=== PATIENT | female | born 1950 | race Caucasian/White ===

== ENCOUNTER 2025-03-08 11:19 | Outpatient (AMB) | payer OTHER, SELFPAY ==
--- NOTE | 2025-03-08 11:25 | A.OFFVIS_ITS ---
Intake Visit Reasons: 2 Months Allergies erythromycin base Allergy (Unknown, Verified 03/02/25 13:33) Unknown levofloxacin (From Levaquin) Allergy (Unknown, Verified 03/02/25 13:33) Unknown methocarbamol (From Robaxin) Allergy (Unknown, Verified 03/02/25 13:33) Unknown morphine Allergy (Unknown, Verified 03/02/25 13:33) Unknown neomycin Allergy (Unknown, Verified 03/02/25 13:33) Unknown oxycodone Allergy (Unknown, Verified 03/02/25 13:33) Unknown pseudoephedrine Allergy (Unknown, Verified 03/02/25 13:33) Unknown HPI Comments Details: 74 yo RH woman with element of anxiety disorder and mild paranoia with significant cortical cerebral atrophy. She c/o chronic dizziness. I saw her in 2019 with similar symptoms. It was a feeling of lightheadedness but not fainting type. There was no known trigger. It was happening sporadically and each time could last for hours. During that time, she was able to function without any issues. Sometimes she had a right ear pressure. No head pressure or headache. There was no mental confusion, difficulty speaking, problem with eyes or walking. No LOC. Sometimes she had tingling and sometimes palpitations. Lorazepam, if taken, can take care of it. She had an MRI of brain and then an MRA of brain, which revealed mild cortical atrophy and bilateral M2 stenosis. EEG was ok. She was feeling better with Escitaloprim. No new issues. [facility] Medical History (Updated 03/08/25 @ 11:36 by Adam Ch MD) Psychosomatic disease Intracranial atherosclerosis Cerebral microvascular disease Anxiety Frontotemporal lobar degeneration Migraine equivalent syndrome Review of Systems Const Details: Constitutional:?No fever, chills, fatigue, weight loss, or night sweats. HEENT:?No headache, vision changes, hearing loss, nasal congestion, sore throat. Neurological:?No dizziness, syncope, seizures, numbness, tingling, weakness, tremors, memory loss. Psychiatric:?No anxiety, depression, mood swings, sleep disturbance, or hallucinations. Endocrine:?No heat/cold intolerance, polydipsia, polyuria, or hair/skin changes. Hematologic/Lymphatic:?No easy bruising, bleeding, or lymphadenopathy. Integumentary (Skin):?No rash, lesions, itching, or color changes. ? Assessment & Plan Assessment & Plan (1) Cerebral degeneration: Comment: MRI/MRA brain WO at [facility] in November 2024: Mild cortical atrophy, minimal MVD, b/l M2 stenosis EEG at office in December 2019: WNL MRI brain WO at [facility] in November 2019: minor MVD, atrophy CT brain WO at [facility] in November 2019: mild to mod FT atrophy CTA neck at [facility] in November 2019: distal [employer] stenosis, otherwise ok (reported) MRI brain WO at [place] in 2012: Mild cerebral atrophy Code(s): G31.9 - Degenerative disease of nervous system, unspecified Category: Medical (2) Intracranial atherosclerosis: Code(s): I67.2 - Cerebral atherosclerosis Category: Medical (3) Anxiety disorder: Code(s): F41.9 - Anxiety disorder, unspecified Category: Medical Qualifiers: Anxiety disorder type: unspecified anxiety disorder Qualified Code(s): F41.9 - Anxiety disorder, unspecified Plan Impression: a: 75 yo woman with degenerative brain process resulting in diffuse cerebral atrophy. It was mild in 2012 and has progressed since then. It typically can result in cognitive and behavioral symptoms including anxiety. b: Intracranial atherosclerosis with mild small vessel disease on MRI Rec: a: Escitaloprm 5mg a day for symptomatic relief b: Aspirin 81 mg daily c: Abeta amyloid serum test d: B12/folate level Orders: Orders ABeta 42/40 p-tau 217 Eval Today G31.84 - Mild cognitive impairment of uncertain or unknown etiology Vitamin B12 and Folate Today G31.9 - Degenerative disease of nervous system, unspecified Medications: Refilled escitalopram oxalate 5 mg PO DAILY 90 tabs 1RF 90 days Coding Level of Care Code Est Pt Level 5 (99206) Diagnoses Cerebral degeneration G31.9 Intracranial atherosclerosis I67.2 Anxiety disorder, unspecified type F41.9 Anxiety disorder type: unspecified anxiety disorder
--- OUTSIDE RECORDS SUMMARY | 2025-03-08 11:59 | XMS_ITS | Clinical Summary ---
Author Organization [facility] Address [address] [place] [id number] Phone Care Team Providers Care Facility Planner Name Role Phone Lindsey Esteban MD Primary Care Provider [phone] Allergies Active Allergy Reactions Criticality Noted Date Comments Cefuroxime Axetil 07/05/2023 Gluten Protein GI Upset 07/08/2024 Latex Rash Low 07/05/2023 Levofloxacin Hives 07/05/2023 Pseudoephedrine 07/05/2023 Shellfish Containing Products Hives,Rash Low 2022 Sulfa (Sulfonamide Antibiotics) 02/2023 Medications fluticasone propionate (FLONASE) 50 mcg/actuation nasal spray 2 sprays by Nasal route daily. Active VAGIFEM [address] 10 mcg vaginally 2 (two) times a week. Active desonide (DESOWEN) 0.05 % ointment Apply topically as needed. Active fluorouraciL (EFUDEX) 5 % cream APPLY TWICE DAILY TO AFFECTED SCALY AREAS FOR SEVERAL WEEKS UNTIL RED AND CRUSTED. 4 Active Active Problems Problem Noted Date Diagnosed Date Celiac disease 07/05/2023 Osteoporosis 07/05/2023 Fibromyalgia 07/05/2023 Hyperlipidemia 07/05/2023 Psoriasis 07/05/2023 GERD (gastroesophageal reflux disease) 3 Essential hypertension 07/05/2023 Pre-diabetes 07/05/2023 Assessment & Plan (07/08/2024 1:09 PM EST): Hba1c last year was was 5.5 w/ glucose 113, which if fasting is c/w pre- diabetes. Sounds as if fairly longstanding & stable. Discussed role of age, genetics, diet, exercise. Would continue to monitor. Given slip to include HbA1c with upcoming labs. Assessment & Plan (07/05/2023 11:53 AM EST): Hba1c earlier in the year was 5.5 w/ glucose 113, which if fasting is c/w pre-diabetes. Sounds as if fairly longstanding & stable. Would continue to monitor. Allergies Multinodular goiter Overview (07/05/2023): Longstanding, s/p FNA w/ Dr. Starkey on left 2005 & bilaterally by Dr. Mendoza 2016. Stable ultrasound 2020. Euthyroid Assessment & Plan (07/08/2024 1:08 PM EST): Longstanding, s/p FNA w/ Dr. Starkey on left 2005 & bilaterally by Dr. Mendoza 2016. Stable ultrasound 2020. Exam unchanged. Has been euthyroid. Some issues swallowing, unlikely related to thyroid, does see GI. Will repeat ultrasound prior to follow up. Will check TFTs with upcoming labs for PCP. Assessment & Plan (07/05/2023 11:52 AM EST): No compressive symptoms. Exam notable for 1 small nodule right lower pole. Will call for actual reports/images of previous ultrasound & determine if/when needs follow up imaging. Will check TFTs with upcoming labs for PCP. Family History Medical History Relation Comments Diabetes Father Thyroid disease Sister Relation Status Comments Father Sister Social History Tobacco Use Types Packs/Day Years Used Date Smoking Tobacco: Never Smokeless Tobacco: Never Tobacco Cessation:Counseling Given: Not Answered Alcohol Use Standard Drinks/Week Comments Never 0 (1 standard drink = 0.6 oz pur e alcohol) Education Answer Date Recorded Are you interested in more education? Not on veronica e 11/23/2022 Are you concerned about learning? Not on file 11/23/2022 No 11/23/2022 No 11/23/2022 Digital Access Answer Date Recorded No 12/24/2022 No 12/24/2022 Reliable internet access at home? Not on file 12/24/2022 Device with a working camera? Not on file Comments Unknown Sex and Gender Information Value Date Recorded Sex Assigned at Female 06/28/2023 12:59 PM EST Legal Sex Female 10:05 PM EDT Gender Identity Female 06/28/2023 12:59 PM EST Sexual Orientation Lesbian or Wetzel 06/28/2023 12 :59 PM EST Last Filed Vital Signs Vital Sign Reading Time Taken Comments Blood Pressure 110/60 07/08/2024 10:48 AM EST Pulse 98 07/08/2024 10:48 AM EST Temperature - - Respiratory Rate - - Oxygen Saturation 99% 07/08/2024 10:48 AM EST Inhaled Oxygen Concentration - - Weight 57.2 kg (126 lb) 07/08/2024 10:48 AM EST Height 164 cm (5' 4.57 ) 07/08/2024 10:48 AM EST Body Mass Index 21.25 07/08/2024 10:48 AM EST Plan of Treatment Upcoming Encounters Date Type Department Care Team (Late st Contact Info) Description 07/08/2025 10:00 AM EST Office Visit [facility] [address] [place] [phone] Lizbet Lee MD [address] [place] [phone] [email or web address] Health Maintenance Due Date Last Done Comments Adult Td,Tdap Booster 1950 LIPID PANEL 1950 DEPRESSION SCREENING 1960 HEPATITIS C SCREENING 01/25/1966 PNEUMOCOCCAL VACCINES (50+ y ears) (1 of 1 - PCV) 01/25/1998 ZOSTER VACCINES (1 of 2) 01/25/1998 OSTEOPOROSIS SCREENING INITI AL (ONE-TIME) 01/25/2013 RSV VACCINE (1 - 1-dose 75+ series) 01/25/2023 COVID-19 VACCINE ( - 2023-2 5 season) 2024 BLOOD PRESSURE 01/06/2025 07/08/2024 SMOKING STATUS SCREENING (On ce After 26 Yrs) Completed 07/05/2023 HEPATITIS A VACCINES Aged Out No long er eligible based on patient's age to complete this topic HIB VACCINES Aged Out No longer eligi ble based on patient's age to complete this topic MENINGOCOCCAL VACCINES (ACWY) Aged Out No longer eligible based on patient's age to complete this topic MENINGOCOCCAL VACCINES (B) Aged Out N o longer eligible based on patient's age to complete this topic Medical Devices Not on file Insurance [employer] PLUS PPO [employer] PLUS PPO [employer] P[employer]US PPO [facility] PLUS PPO [employer] Member Subscriber Plan / Payer (Ef fective 2004-Present) Name:Wanda Cordero Relation to Subscriber:Self Name:Wanda Cordero Payer ID:[id number] (NAIC) Type:Indemnity Address: [address] [address] Care Teams Facility Planner Relationship Specialty Start Date End Date Lindsey Esteban MD [address] [place] [phone] [email or web address] PCP - General Internal Medicine 4/24/23 Additional Source Comments The information contained in this document represents components of the legal health record. It is not the complete legal health record.[facility]
--- OUTSIDE RECORDS SUMMARY | 2025-03-08 11:59 | XMS_ITS | Clinical Summary ---
Author Organization [facility] Address [address] [place] [address] Phone Care Team Providers Care Beer Merchant Name Role Phone Lindsey Esteban MD Primary Care Provider [phone] Allergies Active Allergy Reactions Criticality Noted Date Comments Cephalexin 07/21/2014 Erythromycin Itching,Swelling High 02/10/2016 Eye ointment Latex High 12/20/2005 Other Reaction(s): Rash/Dermatitis after dentist using latex gloves facial rash and cuts corner of mouth Levofloxacin 03/30/2010 Other Reaction(s): Hives/Urticaria Methocarbamol Swelling 07/11/2010 Morphine Nausea And Vomiting 03/30/2010 Wcytjtdb-Rqlfkwnxf-Fg Medium 02/10/2016 Other Reaction(s): OTHER Ears blocked & sore Oxycodone Nausea And Vomiting 03/30/2010 Pseudoephedrine Hcl 12/20/2005 fast heart rate, feels weird Shellfish Derived 05/01/2017 Other Reaction(s): Rash/Dermatitis Simple Eye Ointment 07/31/2024 Eye ointment Sulfa (Sulfonamide Antibiotics) 12/20/2005 since childhood Medications multivit-min/iron /folic acid/K (ADULTS MULTIVITAMIN ORAL) Take by mouth daily. Active estradioL (VAGIFEM) 10 mcg tablet vaginal tablet Place 1 Tablet vaginally twice a week. 3 Active clobetasoL (OLUX) 0.05 % topical foam 6 Active fluocinolone and shower cap 0.01 % oil 6 Active loratadine (CLARITIN) 10 mg tablet 1 Tablet as needed. 5 Active cholecalciferol (VITAMIN D-3) 25 mcg (1,000 unit) tablet 1,000 Units. 5 Active fluticasone propionate (FLONASE) 50 mcg/actuation nasal spray USE DAILY OR DIRECTED BY PHYSICIAN 8 Active desonide (DESOWEN) 0.05 % ointment Apply topically 2 times daily. For eczema Active ketoconazole (NIZORAL) 2 % shampoo Apply topically daily as needed. Active pimecrolimus (ELIDEL) 1 % cream Active albuterol HFA (PROAIR HFA ; PROVENTIL HFA ; VENTOLIN HFA) 90 mcg/actuation inhaler every 4 to 6 hours as needed 4 Active methocarbamoL (ROBAXIN) 500 mg tablet Take 1 tablet (500 mg total) by mouth 4 (four) times a day. Active LORazepam (ATIVAN) 0.5 mg tablet TAKE 1 TABLET BY ORAL ROUTE 2 TIMES PER DAY NEEDED Active Bacillus coagulans (Probiotic, B. coagulans,) 10 billion cell capsule,delayed release(DR/EC) 7 Active multivit-min/foli c acid/vit K1 (MULTI FOR HER 50 PLUS ORAL) Active cetirizine (ZyrTEC) 10 mg capsule 1 capsule by mouth 6 Active aspirin 81 mg EC tablet Take 1 tablet (81 mg total) by mouth 1 (one) time each day. Active famotidine (Pepcid) 20 mg tabletIndications :Gastroesophageal reflux disease, unspecified whether esophagitis present Take 1 tablet (20 mg total) by mouth 2 (two) times a day. 60 each 5 12/09/19 26 Active esomeprazole (NexIUM) [address] capsuleIndication s:Nausea,Epigastr ic pressure,Gastroes ophageal reflux disease without esophagitis TAKE 1 CAPSULE (20 MG TOTAL) BY MOUTH 1 (ONE) TIME EACH DAY BEFORE BREAKFAST. 90 capsule 1 5 11/15/20 25 Active Active Problems Problem Noted Date Diagnosed Date Allergies 11/27/2024 Multinodular goiter 11/27/2024 Overview (11/27/2024): Longstanding, s/p FNA w/ Dr. Starkey on left 2005 & bilaterally by Dr. Mendoza 2015. Stable ultrasound 2020. Euthyroid Lightheadedness 10/30/2024 Dizziness 10/30/2024 Chronic obstructive pulmonar y disease (CMS/HCC V24, CMS/HCC V28) 10/08/2024 Celiac disease 09/04/2024 Assessment & Plan (09/18/2024 6:20 PM EST): Possible exposure. Will check tissue transglutaminase levels. Orders: Tissue transglutaminase, IgG; Future Comprehensive metabolic panel; Future CBC and differential; Future Elevated blood pressure read ing without diagnosis of hypertension 05/18/2024 Overview (07/31/2024): Last Assessment & Plan: Likely whitecoat phenomenon. In reviewing her previous flowsheets with us, her blood pressures have been better controlled in the past. Recommended home blood pressure checks 2-3 times a week at different times in a resting state. She will update me with her numbers on MyChart in a month or so at which point we can determine if she needs medications or not. I suspect they will be normal though. Actinic keratosis 04/02/2024 Essential hypertension 07/05/2023 Pre-diabetes 07/05/2023 Osteoporosis 07/05/2023 Hyperlipidemia 07/05/2023 Fibromyalgia 07/05/2023 Celiac disease 07/05/2023 Dyspnea on exertion 05/23/2023 Overview (07/31/2024): - Exercise nuclear stress test in May 2023-she exercised for 7 minutes to 83% of max predicted heart rate with normal perfusion on nuclear imaging, normal LV systolic function and regional wall motion, normal TID ratio Last Assessment & Plan: Low suspicion for pure cardiac causes. Negative ischemic testing as above last year. Dyspnea has actually improved since last year. I suspect there is significant allergy component which she is working on and reports good control of symptoms. Continue regular exercise program throughout the year as discussed above. Assessment & Plan (09/04/2024 10:32 AM EST): Patient does have some dyspnea on exertion at baseline, very dependent on allergy season. I am going to update an echocardiogram. Orders: Transthoracic echocardiogram (TTE) complete with PRN contrast, bubble, strain, and 3D order panel; Future Cerebral microvascular disease 05/23/2023 Overview (07/31/2024): - Presented with presyncopal episodes to [facility] ER in November 2021-had a full neurologic work-up with an MRI of the brain and the CT angiography of the head and neck - MRI showed no acute abnormalities with mild parenchymal volume loss and probable microangiopathic ischemic changes - CT angiography showed no carotid occlusions, no other hemodynamically significant stenoses or dissection, she had a 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 Ch of neurology who was apparently concerned she may have some early dementia - She pursued a second neurologic opinion who did not feel this to be the case - In further work-up of cardiovascular risk, I did a coronary calcium score which was unremarkable - She also had an expanded lipid profile which showed normal LP (a) at 8, mildly increased IDL at 21 with upper limit of normal being 20, LDL-R-C of 132, pattern a size with remnant lipoprotein of 33 with upper limit of normal being 30, apolipoprotein B 100 of 117 with upper limit of normal being 109, total non-HDL cholesterol of 181 with upper limit of normal being less than 160, HDL-2 of 19 with greater than 15 being good, HDL-3 of 45 with greater than 25 being good, and VLDL of 12 with less than 10 being good Last Assessment & Plan: No new TIA/CVA symptoms Nonvenomous insect bite of left lower leg 2022 Palpitations 05/04/2022 Overview (07/31/2024): - Holter monitor in November 2019 showed sinus rhythm with rare APCs, 1 atrial pair, rare PVCs with symptoms of lightheadedness and dizziness correlating to sinus rhythm Last Assessment & Plan: Rare, intermittent symptoms, no worrisome findings, continue to monitor Assessment & Plan (09/04/2024 10:32 AM EST): Patient experiencing slight increase in palpitations, at night. They do not interfere with her daily living. I do want to update a Holter monitor. Orders: ECG 12 lead Cardiac holter monitor (<= 48 hours); Future Melanocytic nevi of left lower limb, including h ip 03/31/2020 Other seborrheic keratosis 03/31/2020 Arthritis 05/21/2019 Hypercholesterolemia 05/21/2019 GERD (gastroesophageal reflux disease) 9 Clinical finding present on admission 04/23/2019 Low back pain radiating to right leg 11/12/2018 Headache 10/27/2018 Overview (11/27/2024): Facial pain NOS; Note: Date Diagnosed: 10/27/2018 9:33 AM (R51) Follicular cyst of skin and subcutaneous tissue 10/09/2018 Cervical spine arthritis 07/07/2018 Hyperlipidemia 04/09/2018 Overview (07/31/2024): - Mild and for further restratification, we did a coronary calcium score on 02/12/2020 which was 0 and therefore we have managed without medical therapy so far Last Assessment & Plan: Continue to observe heart healthy diet. Reviewed the importance of regular aerobic exercise all throughout the year. Assessment & Plan (09/04/2024 10:32 AM EST): Will draw lipid panel in 3 months. Educated the patient about adhering to a healthy cardiac diet. Orders: ECG 12 lead Lipid panel; Future Nasal congestion 04/07/2018 Overview (11/27/2024): Nasal congestion; Note: Date Diagnosed: 04/07/2018 9:45 AM (R09.81) Lichen sclerosus 03/18/2018 Recurrent UTI 11/25/2017 Osteopenia 10/15/2017 Allergic rhinitis 07/12/2017 Plantar wart 11/06/2016 Allergic rhinitis 10/17/2016 Overview (11/27/2024): Allergic Rhinitis; Note: Date Diagnosed: 10/17/2016 10:34 AM (477.9) Other allergic rhinitis; Note: Date Diagnosed: 10/03/2016 8:57 AM (J30.89) ; Start Date : 10/03/2016 Psoriasis 06/27/2016 Overview (11/27/2024): Other psoriasis; Note: Date Diagnosed: 06/27/2016 2:52 PM (L40.8) Ear drum perforation 04/05/2016 Irritable bowel syndrome (IBS) 02/09/2016 Assessment & Plan (12/08/2024 10:38 AM EDT): Improved since the gallon cleanout . Continue fiber supplementation daily. Consider MiraLAX in regimen and preventative therapy to avoid overflow diarrhea occurring again, take MiraLAX every 2-5 days or as needed. -Can also use prunes or prune juice daily for preventative measure. Prunes: 6-8 daily, Prune juice: 6-8oz daily. Make sure to stay well hydrated, eat a diet rich in fibrous foods, and exercise/walk daily for promoting bowel movements. 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/2016 Acute serous otitis media of right ear 6 Overview (11/27/2024): Acute serous otitis media, right ear; Note: Date Diagnosed: 01/09/2016 9:44 AM (H65.01) Arthralgia of temporomandibular joint 01/09/2016 Overview (11/27/2024): Arthralgia of temporomandibular joint; Note: Date Diagnosed: 01/09/2016 9:45 AM (M26.62) Bilateral impacted cerumen 01/06/2016 Overview (11/27/2024): Impacted cerumen, bilateral; Note: Date Diagnosed: 01/06/2016 4:33 PM (H61.23) Mixed conductive and sensori neural hearing loss of right ear 01/06/2016 Overview (11/27/2024): Mixed conductive and sensorineural hearing loss, unilateral, right ear, with unrestricted hearing on the contralateral side; Note: Date Diagnosed: 01/06/2016 5:10 PM (H90.71) Sensorineural hearing loss (SNHL) of both ears 0 01/06/2016 Overview (11/27/2024): Sensorineural hearing loss, unilateral, left ear, with unrestricted hearing on the contralateral side; Note: Date Diagnosed: 01/06/2016 5:10 PM (H90.42) Central perforation of tympanic membrane of righ t ear 12/29/2015 Overview (11/27/2024): Central perforation of tympanic membrane, right ear; Note: Date Diagnosed: 12/29/2015 4:47 PM (H72.01) Psoriasis vulgaris 12/15/2015 Eczema 09/19/2015 Overview (11/27/2024): Other specified dermatitis; Note: Date Diagnosed: 09/19/2015 10:16 AM (L30.8) Melanocytic nevi of trunk 09/06/2015 Sick sinus syndrome (CMS/[facility] V24, CMS/HCC V28) 1 09/12/2014 Thyroid nodule 07/08/2015 Benign neoplasm of skin of upper extremity 07/07 Other specified disorders of eustachian tube, bi lateral 07/06/2015 Overview (11/27/2024): Other specified disorders of Eustachian tube, bilateral; Note: Date Diagnosed: 07/06/2015 4:13 PM (H69.83) Otalgia of both ears 06/28/2015 Overview (11/27/2024): Otalgia, bilateral; Note: Date Diagnosed: 06/28/2015 11:35 AM (H92.03) Otorrhea 04/06/2015 Overview (11/27/2024): Otorrhea; Note: Date Diagnosed: 04/06/2015 10:30 AM (388.60) Otorrhea of right ear 04/06/2015 Overview (11/27/2024): Otorrhea, right ear; Note: Date Diagnosed: 04/06/2015 10:27 AM (H92.11) resolved Anal fissure 04/05/2015 External hemorrhoids 03/09/2015 Verruca 03/09/2015 Eczema 02/17/2015 Senile hyperkeratosis 01/17/2015 Rosacea 10/20/2014 Benign neoplasm of skin of trunk 09/21/2014 Anal polyp 07/21/2014 Inflamed seborrheic keratosis 07/19/2014 Internal hemorrhoids 07/09/2014 Seborrheic dermatitis 05/19/2014 Arthralgia of multiple sites 03/08/2014 Neoplasm of uncertain behavior of skin 4 Abnormal pigmentation of skin 01/04/2014 Fibromyalgia 11/08/2011 GERD (gastroesophageal reflux disease) 2 Assessment & Plan (12/08/2024 10:38 AM EDT): Patient would like to switch off PPI to something with less long-term risks. Continue Nexium until prescription runs out, then switch to Famotidine 20mg daily with optional second dose at bedtime. Follow a low-acid diet and avoid overeating, especially before bedtime. Orders: famotidine (Pepcid) 20 mg tablet; Take 1 tablet (20 mg total) by mouth 2 (two) times a day. Dysphagia 02/28/2010 Encounters Date Type Department Care Team Description 02/11/2025 10:30 AM EDT Office Visit Pulmonolgy - [place] [address] [facility] [address] [place] [address] Jeannie Daigle MD Mycobacterium avium complex ([facility] V24, [facility] V28) (Primary Dx); Bronchiectasis without complication ([facility] V24, [facility] V28) 12/08/2024 10:10 AM EDT Office Visit Gastroenterology - [address] [facility] [address] [facility] [address] [place] [address] Marisol Adair PA Gastroesophageal reflux disease, unspecified whether esophagitis present (Primary Dx); Irritable bowel syndrome with both constipation and diarrhea from Last 3 Months Immunizations Name Administration Dates Next Due Pfizer SARS-CoV-2 COVID-19, mRNA, LNP-S, preservative free 10/01/2020 Pneumococcal polysaccharide 23 valent (Pneumovax 23) 2yo and older 07/13/2013 Tdap Tetanus diptheria acell ular pertussis (Boostrix; Adacel) 7yo and older 04/26/2015 Surgical History Surgery Date Site/Laterality Comments CHOLECYSTECTOMY 2000 PROCEDURE: HISTORICAL CHOLECYSTECTOMY UPPER GASTROINTESTINAL ENDOSCOPY 1999 PROCEDURE: [place] UPPER GI ENDOSCOPY PERFORMED; COMMENT: esophageal dilation in the past. COLONOSCOPY 2010 PROCEDURE: HISTORICAL COLONOSCOPY; COMMENT: Mark; negative COLONOSCOPY 2021 - 02/25/2021 dr. juares ESOPHAGOGASTRODUODENOSCOPY 2021 - 02/25/2021 celiac disease Medical History Medical History Date Comments Allergic rhinitis 07/12/2017 DX:Allergic rh initis Anal fissure 04/05/2015 DX:Anal fissure Anal polyp 07/21/2014 DX:Anal polyp Arthralgia of multiple sites 03/08/2014 DX: Arthralgia of multiple sites Dysphagia 02/28/2010 DX:Dysphagia Ear drum perforation 04/05/2016 DX:Ear drum perforation Eczema 02/17/2015 DX:Eczema External hemorrhoids 03/09/2015 DX:External hemorrhoids Fibromyalgia 11/08/2011 DX:Fibromyalgia GERD (gastroesophageal reflux disease) 2 DX:GERD (gastroesophageal reflux disease) Hyperlipidemia 04/09/2018 DX:Hyperlipidemi a Internal hemorrhoids 07/09/2014 DX:Internal hemorrhoids Irritable bowel syndrome (IBS) 02/09/2016 D X:Irritable bowel syndrome (IBS) Lichen sclerosus 03/18/2018 DX:Lichen scler osus Osteopenia 10/15/2017 DX:Osteopenia Recurrent UTI 11/25/2017 DX:Recurrent UTI Seborrheic dermatitis 07/06/2015 DX:Seborrh eic dermatitis Sick sinus syndrome (CMS/HCC V24, CMS/HCC V28) 07/12/2015 DX:Sick sinus syndrome (HCC) Thyroid nodule 07/08/2015 DX:Thyroid nodul e 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/2016 DX:TMJ arthritis Celiac disease DX:Celiac diseas e Motion sickness 1985 Anxiety Lung disease Family History Medical History Relation Name Comments Breast cancer Aunt mat side x2 Diabetes Father Huey Heart attack Father Huey Hypertension Father Huey Other cancer Father Huey lymphoma Breast cancer Father's Sister Breast cancer Father's side paternal aunt 41 Other cancer Father's side lung ca patern al uncle Heart failure Mother Sylvie Hypertension Mother Sylvie Breast cancer Mother's Sister Breast cancer Sister BRCA negative Relation Name Status Comments Aunt Father Huey Father's Sister Alive Father's side Mother Sylvie Mother's Sister Alive Sister Social History Tobacco Use Types Packs/Day Years Used Date Smoking Tobacco: Former Cigarettes 1 5 0 07/29/1969 - 07/29/1974 Smokeless Tobacco: Never Tobacco Cessation:Counseling Given: Not Answered Alcohol Use Standard Drinks/Week Comments No 0 (1 standard drink = 0.6 oz pur e alcohol) Comments No Sex and Gender Information Value Date Recorded Sex Assigned at Female 08/13/2024 2:35 PM EST Legal Sex Female 9:29 PM EST Gender Identity Female 08/13/2024 2:35 PM EST Sexual Orientation Lesbian or Wetzel 08/13/2024 2: 35 PM EST Obstetrics History Last Filed Vital Signs Vital Sign Reading Time Taken Comments Blood Pressure 126/60 02/11/2025 10:38 AM EDT Pulse 79 02/11/2025 10:38 AM EDT Temperature 36.3 C (97.3 F) 02/11/2025 10:38 AM EDT Respiratory Rate 16 02/11/2025 10:38 AM EDT Oxygen Saturation 97% 02/11/2025 10:38 AM EDT Inhaled Oxygen Concentration - - Weight 59 kg (130 lb) 02/11/2025 10:38 AM EDT Height 165.1 cm (5' 5 ) 02/11/2025 10:38 AM EDT Body Mass Index 21.63 02/11/2025 10:38 AM EDT Plan of Treatment Upcoming Encounters Date Type Department Care Team (Late st Contact Info) Description 03/11/2025 10:10 AM EDT Office Visit Gastroenterology - [address] [place] [address] [facility] [address] [place] [phone] Marisol Adair PA [address] [facility] [address] [place] [address] 03/12/2025 10:40 AM EDT Office Visit [facility] - [facility] [address] [facility] [address] [place] [phone] Stanislav Roca, DAVY [address] [place] [address] 08/13/2025 10:00 AM EST Office Visit Pulmonolgy - [place] [address] [facility] [address] [place] [address] Jeannie Daigle MD [address] [facility] [address] [place] [address] Health Maintenance Due Date Last Done Comments Falls Risk Assessment 07/07/2022 Hepatitis C Screening 07/07/2022 Social Influencers of Health Screening 07/07/2022 Depression Screening 07/29/2024 Influenza Vaccine (#1) 2025 , 04/24/2023, 05/15/2022, Additional history exists DTaP,Tdap,and Td Vaccines (2 - Td or Tdap) 04/26/2025 04/26/2015 Hypertension/CHF/CAD Annual BMP Blood Test 09/26/2025 09/26/2024, 09/18/2024, 01/10/2022 Cholesterol Screening (Lipid Panel) 09/18/2029 09/18/2024, 12/28/2020 Osteoporosis Screening (Bone Density Screening) 07/06/2039 07/06/2024, 07/02/2022, 06/27/2020 Zoster Vaccines Completed 01/12/2019, 08/2018, 05/23/2012 Pneumococcal Vaccine: 50+ Years Completed 05/24/2023, 07/13/2019, 04/09/2018, Additional history exists RSV Immunization Adult Patients Completed 07/17/2023 Breast Cancer Screening Discontinued 07/21/20, 07/06/2024, 07/04/2023, Additional history exists COVID-19 Vaccine Completed 10/28/2024, 03/2024, 05/14/2023, Additional history exists HIB Vaccines Aged Out No longer eligi ble based on patient's age to complete this topic HPV Vaccines Aged Out No longer eligi ble based on patient's age to complete this topic Hepatitis A Vaccines Aged Out No long er eligible based on patient's age to complete this topic Hepatitis B Vaccines Aged Out No long er eligible based on patient's age to complete this topic IPV Vaccines Aged Out No longer eligi ble based on patient's age to complete this topic MMR Vaccines Aged Out No longer eligi ble based on patient's age to complete this topic Meningococcal ACWY Vaccine Aged Out N o longer eligible based on patient's age to complete this topic Meningococcal B Vaccine Aged Out No l onger eligible based on patient's age to complete this topic RSV Immunization Patients Under 20 months Aged Out No longer eligible based on patient's age to complete this topic Varicella Vaccines Aged Out No longer eligible based on patient's age to complete this topic Procedures Procedure Name Priority Date/Time Associated Diagnosis Comments BASIC METABOLIC PANEL STAT 09/26/2024 9:55 AM EST LIPID PANEL WITH REFLEX TO DIRECT LDL Routine 09/18/2024 3:09 PM EST Hyperlipidemia MG MAMMO DIAGNOSTIC ADDL VIEWS RIGHT Routine 07/21/2024 9:44 AM EST Breast asymmetry BD BONE DENSITY DXA AXIAL SKELETON Routine 07/06/2024 10:17 AM EST Post-menopausal from Last 3 Months or Most Recently Relevant to Health Maintenance Results * (ABNORMAL) Basic metabolic panel (09/26/2024 9:55 AM EST) Sodium 141 133 - 145 mmol/L LAB CHEMISTRY METHOD 09/26/2024 11:07 AM [facility] Potassium 4.2 3.5 - 5.5 mmol/L LAB CHEMISTRY METHOD 09/26/2024 11:07 AM [facility] Chloride 108 96 - 110 mmol/L LAB CHEMISTRY METHOD 09/26/2024 11:07 AM [facility] CO2 26 21 - 32 mmol/L LAB CHEMISTRY METHOD 09/26/2024 11:07 AM [facility] Anion Gap 7 3 - 11 LAB CHEMISTRY METHOD 09/26/2024 11:07 AM [facility] Glucose 111(H) 70 - 100 mg/dL LAB CHEMISTRY METHOD 09/26/2024 11:07 AM [facility] BUN 12 5 - 25 mg/dL LAB CHEMISTRY METHOD 09/26/2024 11:07 AM [facility] Creatinine 0.83 0.50 - 1.10 mg/dL LAB CHEMISTRY METHOD 09/26/2024 11:07 AM [facility] eGFR 73 >=60 mL/min/1. 73m2 LAB CHEMISTRY METHOD 09/26/2024 11:07 AM [facility] Comment:Calculation based on the Chronic Kidney Disease Epidemiology Collaboration (CKD-EPI) equation refit without adjustment for race. BUN/Creatinine Ratio 14.5 LAB CHEMISTRY METHOD 09/26/2024 11:07 AM [facility] Calcium 9.0 8.5 - 10.5 mg/dL LAB CHEMISTRY METHOD 09/26/2024 11:07 AM [facility] Blood Venous blood specimen / Unknown Venipuncture / Unknown 09/26/2024 9:55 AM EST 09/26/2024 10:08 AM EST us Omar Raya MD LAB BLOOD ORDERABLES Final Resu lt [facility] [address] [place] [address], * (ABNORMAL) Lipid panel with reflex to direct LDL (09/18/2024 3:09 PM EST) Cholesterol 174 0 - 200 mg/dL LAB CHEMISTRY METHOD 09/18/2024 5:04 PM [facility] Triglycerides 174(H) 0 - 150 mg/dL LAB CHEMISTRY METHOD 09/18/2024 5:04 PM [facility] HDL 41 >=40 mg/dL LAB CHEMISTRY METHOD 09/18/2024 5:04 PM [facility] LDL Calculated 98 0 - 100 mg/dL LAB CHEMISTRY METHOD 09/18/2024 5:04 PM EST [facility] VLDL Cholesterol Marvin 34.8 mg/dL LAB CHEMISTRY METHOD 09/18/2024 5:04 PM EST [facility] Non HDL Chol. (LDL+VLDL) 133 <145 mg/dL LAB CHEMISTRY METHOD 09/18/2024 5:04 PM EST [facility] Chol/HDL Ratio 4.2 0.0 - 4.4 LAB CHEMISTRY METHOD 09/18/2024 5:04 PM EST [facility] Blood Venous blood specimen / Unknown Venipuncture / Unknown 09/18/2024 3:09 PM EST 09/18/2024 3:22 PM EST us Stanislav Roca NP LAB BLOOD ORDERABLES Final Resul t [facility] [address] [place] [address], * MG Mammo Diagnostic Addl Views Right (07/21/2024 9:44 AM EST) Anatomical Region Laterality Modality Breast Right Mammography 07/21/2024 9:38 AM EST Impressions 07/21/2024 9:43 AM EST Benign. BI-RADS CATEGORY: 1 - NEGATIVE RECOMMENDATION: Screening bilateral mammogram is recommended in 1 year. Mammo Location: [facility], [address] [place] [id number] -------- FINAL REPORT -------- Dictated By: Flako Stanley Dictated Date: 07/21/2024 09:38 ET Assigned Physician: Flako Stanley Reviewed and Electronically Signed By: Flako Stanley Signed Date: 07/21/2024 09:43 ET Workstation ID: [id number] Transcribed By: Self Edit Transcribed Date: 07/21/2024 09:39 ET Narrative 07/21/2024 9:43 AM EST CLINICAL: The patient is a 74 years Female. Screening mammography performed 07/06/2024 demonstrated a 9 mm diameter asymmetry superiorly in the right breast 5 cm from the nipple. The patient now presents for supplementary imaging. COMPARISON: Most recently 07/06/2024 and most remotely 06/10/2017. TECHNIQUE: Digital mammography of the left breast in spot compression MLO tomosynthesis and full field 2 lateral tomosynthesis projections is performed in the [employer] Senographe 2000-D unit. Computer aided detection utilizing the iCAD system was utilized. FINDINGS: The study demonstrates partial effacement of the asymmetry of concern with compression and with change in position. Residual asymmetry is unchanged in appearance as compared to prior studies dating back to 06/10/2017. This is therefore again regarded as being benign. TISSUE DENSITY: There are scattered areas of fibroglandular density. (BI-RADS category B) Procedure Note Flako Stanley MD - 07/21/2024 CLINICAL: The patient is a 74 years Female. Screening mammographyperformed 07/06/2024 demonstrated a 9 mm diameter asymmetry superiorly inthe right breast 5 cm from the nipple. The patient now presents forsupplementary imaging. COMPARISON: Most recently 07/06/2024 and most remotely 06/10/2017. TECHNIQUE: Digital mammography of the left breast in spot compression MLOtomosynthesis and full field 2 lateral tomosynthesis projections isperformed in the [employer] 2000-D unit. Computer aided detectionutilizing the iCAD system was utilized. FINDINGS: The study demonstrates partial effacement of the asymmetry ofconcern with compression and with change in position. Residual asymmetryis unchanged in appearance as compared to prior studies dating back to06/10/2017. This is therefore again regarded as being benign. TISSUE DENSITY: There are scattered areas of fibroglandular density.(BI-RADS category B) IMPRESSION: Benign. BI-RADS CATEGORY: 1 - NEGATIVE RECOMMENDATION: Screening bilateral mammogram is recommended in 1 year. Mammo Location: [facility], [address] [place] [phone] -------- FINAL REPORT -------- Dictated By: Flako Stanley Dictated Date: 07/21/2024 09:38 ET Assigned Physician: Flako Stanley Reviewed and Electronically Signed By: Flako Stanley Signed Date: 07/21/2024 09:43 ET Workstation ID: [id number] Transcribed By: Self Edit Transcribed Date: 07/21/2024 09:39 ET us Lindsey Esteban MD IMG BI PROCEDURES Final Result * BD Bone Density DXA Axial Skeleton (07/06/2024 10:17 AM EST) Anatomical Region Laterality Modality Wrist, Hip, L-spine Bone Densito metry 07/08/2024 8:37 AM EST Impressions 07/08/2024 8:39 AM EST 1. There is no evidence of osteoporosis or osteopenia. There has been a decrease of 2.7% in bone mineral density in the lumbar spine since the prior examination of 07/02/2022. There has been a decrease of 3.3% in bone mineral density in the right femur and a decrease of 2.5% in bone mineral density in the left femur. 2. FRAX analysis yields a 10-year probability of major osteoporotic fracture of 9.0% and a 10-year probability of hip fracture of 1.4%. Code 38520 -------- FINAL REPORT -------- Dictated By: Flako Stanley Dictated Date: 07/08/2024 08:37 ET Assigned Physician: Flako Stanley Reviewed and Electronically Signed By: Flako Stanley Signed Date: 07/08/2024 08:39 ET Workstation ID: [id number] Transcribed By: Self Edit Transcribed Date: 07/08/2024 08:37 ET Narrative 07/08/2024 8:39 AM EST HISTORY: The patient is a 74-year-old postmenopausal female with clinical concern for metabolic bone disease. FINDINGS: Dual energy x-ray absorptiometry of the lumbar spine and femurs is performed. The mean bone mineral density at L1-2 is 1.118 gm/cm2 which is 96% of that of young normals and 121% of that of age matched controls. This yields a T-score of -0.4 and a Z-score of 1.6 and there is therefore no evidence of osteoporosis or osteopenia here. The mean bone mineral density of the femurs bilaterally is 0.928 gm/cm2 which is 92% of that of young normals and 122% of that of age matched controls. This yields a T-score of -0.6 and a Z-score of 1.3 and there is therefore no evidence of osteoporosis or osteopenia here. Procedure Note Flako Stanley MD - 07/08/2024 HISTORY: The patient is a 74-year-old postmenopausal female with clinicalconcern for metabolic bone disease. FINDINGS: Dual energy x-ray absorptiometry of the lumbar spine and femursis performed. The mean bone mineral density at L1-2 is 1.118 gm/cm2 whichis 96% of that of young normals and 121% of that of age matched controls.This yields a T-score of -0.4 and a Z-score of 1.6 and there is thereforeno evidence of osteoporosis or osteopenia here. The mean bone mineral density of the femurs bilaterally is 0.928 gm/nr3zgfsn is 92% of that of young normals and 122% of that of age matchedcontrols. This yields a T-score of -0.6 and a Z-score of 1.3 and there istherefore no evidence of osteoporosis or osteopenia here. IMPRESSION: 1. There is no evidence of osteoporosis or osteopenia. There has been adecrease of 2.7% in bone mineral density in the lumbar spine since theprior examination of 07/02/2022. There has been a decrease of 3.3% in bonemineral density in the right femur and a decrease of 2.5% in bone mineraldensity in the left femur. 2. FRAX analysis yields a 10-year probability of major osteoporoticfracture of 9.0% and a 10-year probability of hip fracture of 1.4%. Code 07940 -------- FINAL REPORT -------- Dictated By: Flako Stanley Dictated Date: 07/08/2024 08:37 ET Assigned Physician: Flako Stanley Reviewed and Electronically Signed By: Flako Stanley Signed Date: 07/08/2024 08:39 ET Workstation ID: [id number] Transcribed By: Self Edit Transcribed Date: 07/08/2024 08:37 ET Lindsey Esteban MD IM DXA PROCEDURES Final Result from Last 3 Months or Most Recently Relevant to Health Maintenance Insurance [employer] [id number] Care Teams Beer Merchant Relationship Specialty Start Date End Date Lindsey Esteban MD [address] [facility] [address] [place], [place] [id number] PCP - General Internal Medicine 07/03/24
== END 2025-03-08 11:47 | disposition home or self-care (01) ==
LOC: HO.HSM 11:20
PROVIDERS: PCP Internal Medicine; Referring Provider Internal Medicine; Visit Provider Psychiatry & Neurology Neurology
DX: G31.9 Degenerative disease of nervous system, unspecified (principal); I67.2 Cerebral atherosclerosis; F41.9 Anxiety disorder, unspecified
CPT/HCPCS: 99214

== ENCOUNTER 2025-03-08 11:19 | Outpatient (REF) | payer OTHER, SELFPAY ==
[2025-03-08 14:08] LABS: Folate 14.3 ng/mL (> or = 4.0); Vitamin B12 > 2000 pg/mL (200-900)
[2025-03-17 12:33] LABS: ABETA 42/40 Ratio 0.155 (> OR = 0.170); Alzeheimer's Interpretation Low Likelihood; Alzeimer's Disease Score 0.1962; Tau protein phosphorylated 217 0.14 pg/mL (< OR = 0.15)
== END 2025-03-08 11:20 | disposition home or self-care (01) ==
LOC: HO.LAB 11:19
PROVIDERS: PCP Internal Medicine; Referring Provider Internal Medicine; Visit Provider Psychiatry & Neurology Neurology
DX: I67.2 Cerebral atherosclerosis (principal); F41.9 Anxiety disorder, unspecified; Z79.899 Other long term (current) drug therapy
CPT/HCPCS: 36415; 82233; 82234; 82607; 82746; 84393

== ENCOUNTER 2025-04-22 12:28 | Outpatient (AMB) | payer OTHER, SELFPAY ==
--- NOTE | 2025-04-22 12:36 | A.OFFVIS_ITS ---
Intake Visit Reasons: 1M Allergies erythromycin base Allergy (Unknown, Verified 03/02/25 13:33) Unknown levofloxacin (From Levaquin) Allergy (Unknown, Verified 03/02/25 13:33) Unknown methocarbamol (From Robaxin) Allergy (Unknown, Verified 03/02/25 13:33) Unknown morphine Allergy (Unknown, Verified 03/02/25 13:33) Unknown neomycin Allergy (Unknown, Verified 03/02/25 13:33) Unknown oxycodone Allergy (Unknown, Verified 03/02/25 13:33) Unknown pseudoephedrine Allergy (Unknown, Verified 03/02/25 13:33) Unknown HPI Comments Details: 75 years old woman with neuropsychiatric disorder presenting as cognitive difficulty and anxiety. Her brain imaging revealed frontotemporal cerebral atrophy. B12 and folate were normal. A beta amyloid testing for cerebral amyloid suggested low likelihood of Alzheimer. [facility] Medical History (Updated 03/08/25 @ 11:36 by Adam Ch MD) Psychosomatic disease Intracranial atherosclerosis Cerebral microvascular disease Anxiety Frontotemporal lobar degeneration Migraine equivalent syndrome Physical Exam Neuro Other: Mental Status: Alert and oriented to person, place, and time. Normal attention. Normal spontaneous speech, fluency, and comprehension. No obvious issues with mood and memory. Affect is anxious. Cranial Nerves: CN II: Visual montes full to confrontation, visual acuity intact. CN III, IV, : Pupils equal, round, reactive to light and accommodation. Extraocular movements are normal. CN V: Facial sensation is normal. CN VII: Facial movements symmetrical. CN VIII: Hearing intact to bedside conversation is normal. CN IX, X: Palate elevates symmetrically. CN XI: Shoulder shrug and head turn symmetrical. CN XII: Tongue midline without atrophy or fasciculations. Extrapyramidal: Full facial expressions and blinking. No rigidity. Movements are appropriate with no tremor or abnormality. Speech: Normal; no dysarthria or tremor. Assessment & Plan Assessment & Plan (1) Intracranial atherosclerosis: Code(s): I67.2 - Cerebral atherosclerosis Category: Medical (2) Cerebral degeneration: Comment: MRI/MRA brain WO at [facility] in November 2024: Mild cortical atrophy, minimal MVD, b/l M2 stenosis EEG at office in December 2019: WNL MRI brain WO at [facility] in November 2019: minor MVD, atrophy CT brain WO at [facility] in November 2019: mild to mod FT atrophy CTA neck at [facility] in November 2019: distal R [employer] stenosis, otherwise ok (reported) MRI brain WO at [facility] in 2012: Mild cerebral atrophy Code(s): G31.9 - Degenerative disease of nervous system, unspecified Category: Medical Plan Impression recommendations: 75 years old woman with 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 She and her friend had number of questions that were answered. Medications: New escitalopram oxalate 10 mg PO DAILY 90 tabs 1RF escitalopram oxalate 10 mg PO DAILY 90 tabs 1RF Discontinued escitalopram oxalate Discontinued Reason: Doctor's Order 5 mg PO DAILY 90 days 90 tabs 1RF Coding Level of Care Code Est Pt Level 4 (54593) Diagnoses Intracranial atherosclerosis I67.2 Cerebral degeneration G31.9
--- OUTSIDE RECORDS SUMMARY | 2025-04-22 17:18 | XMS_ITS | Clinical Summary ---
Author Organization [facility] Address [address] [place] [phone] Phone Care Team Providers Care Special Tester Name Role Phone Lindsey Esteban MD Primary Care Provider [phone] Allergies Active Allergy Reactions Criticality Noted Date [...] FOR SEVERAL WEEKS UNTIL RED AND CRUSTED. Active Active Problems Problem Noted Date Diagnosed [...] 10:00 AM EST Office Visit [facility] [address] [place] [phone] Lizbet Lee MD [address] [place] [id number] [email or web address] Health Maintenance Due Date Last Done Comments Adult Td,Tdap Booster 1950 LIPID PANEL 1950 DEPRESSION SCREENING 1960 HEPATITIS C SCREENING 01/25/1966 PNEUMOCOCCAL VACCINES (50+ y ears) (1 of 1 - PCV) 01/25/1998 ZOSTER VACCINES (1 of 2) 01/25/1998 OSTEOPOROSIS SCREENING INITI AL (ONE-TIME) 01/25/2013 RSV VACCINE (1 - 1-dose 75+ series) 01/25/2023 BLOOD PRESSURE 01/06/2025 07/08/2024 INFLUENZA VACCINE (#1) 2025 COVID-19 VACCINE (2023-2 5 season) 2025 SMOKING STATUS SCREENING (On ce After 26 [...] topic Medical Devices Not on file Insurance [employer] PPO [employer] PLUS PPO [employer] PLUS PPO [employer] GIC PLUS PPO [employer] G[employer] PLUS PPO [facility] PLUS PPO [employer] [facility] [id number] Care Teams Special Tester Relationship Specialty Start Date End Date Lindsey Esteban MD [address] [place] [phone] PCP - General Internal Medicine 11/19/22 Additional Source Comments The information contained in this document represents components of the legal health record. It is not the complete legal health record.[facility]
== END 2025-04-22 12:59 | disposition home or self-care (01) ==
LOC: HO.HSM 12:29
PROVIDERS: PCP Internal Medicine; Visit Provider Psychiatry & Neurology Neurology
DX: I67.2 Cerebral atherosclerosis (principal); G31.9 Degenerative disease of nervous system, unspecified
CPT/HCPCS: 99214